=== PATIENT | male | born 1945 | race Two or more races ===

== ENCOUNTER 2020-07-31 17:57 | Inpatient (IN) | payer MEDICARE, MEDICAID ==
[~2020-07-31] VITALS: Ht 170.2 cm; Wt 61.6 kg
[2020-07-31] MEDS ORDERED: HALOPERIDOL 5 MG TABLET PO PRN (20:00)
[2020-07-31] MEDS ORDERED: ZOLPIDEM TARTRATE 10 MG TABLET PO PRN (20:00)
[2020-07-31 21:17] VITALS: BP 115/84
[2020-08-01 01:35] VITALS: BP 112/74
[2020-08-01 08:31] VITALS: BP 105/68
[2020-08-01 08:47] LABS: EOSINOPHILS % (AUTO) 1.1 % (1.0-6.0); HEMATOCRIT 37.2 % (41-53); HEMOGLOBIN 12.4 g/dL (13.5-17.5); LYMPHOCYTES # (AUTO) 1.9 K/uL (1.0-4.8); LYMPHOCYTES % (AUTO) 36.8 % (22.0-44.0); MEAN CORPUSCULAR HEMOGLOBIN 31.1 pg (26.0-34.0); MEAN CORPUSCULAR HGB CONC 33.5 G/dL (31.0-37.0); MEAN CORPUSCULAR VOLUME 93 fL (80-100); MONOCYTES # (AUTO) 0.4 K/uL (0.1-1.0); MONOCYTES % (AUTO) 7.5 % (2.0-9.0); NEUTROPHILS # (AUTO) 2.9 K/uL (1.8-7.7); NEUTROPHILS % (AUTO) 54.6 % (40.0-70.0); PLATELET COUNT (AUTO) 159 K/uL (150-450); RED BLOOD CELL COUNT(AUTO) 3.99 MIL/uL (4.50-5.90); RED CELL DISTRIBUTION WIDTH 14.1 % (11.5-14.5)
[2020-08-01 09:21] LABS: ALANINE AMINOTRANSFERASE 18 U/L (12-78); ALBUMIN 3.4 g/dL (3.4-5.0); ALKALINE PHOSPHATASE 66 U/L (46-116); ANION GAP 7 mmol/L (8-16); ASPARTATE AMINOTRANSFERASE 15 U/L (15-37); BILIRUBIN,TOTAL 0.5 mg/dL (0.1-1.0); CALCIUM, TOTAL 9.3 mg/dL (8.8-10.5); CARBON DIOXIDE 29 mmol/L (22-29); CHLORIDE 105 mmol/L (98-107); CHOL/HDL RATIO 2.6 (4.2-7.3); CHOLESTEROL 138 mg/dL (131-200); CREATININE 0.68 mg/dL (0.60-1.30); FREE T4 (FREE THYROXINE) 0.95 ng/dL (0.76-1.46); GLOMERULAR FILTR. RATE CALC > 60 mL/min (>60); GLUCOSE,RANDOM 83 mg/dL (70-110); HDL CHOLESTEROL 54 mg/dL (40-60); LDL CHOL (CALC.) 68 mg/dL (0-130); POTASSIUM 4.1 mmol/L (3.5-5.1); SODIUM SERUM 141 mmol/L (136-145); THYROID STIMULATING HORMONE 6.98 uIU/mL (0.36-3.74); TOTAL PROTEIN, SERUM 6.4 g/dL (6.4-8.2); TRIGLYCERIDES 80 mg/dL (15-150); UREA NITROGEN, BLOOD 10 mg/dL (7-18)
[2020-08-01] MEDS: LORazepam 2 MG TABLET PO PRN ×2 (12:34→16:57)
[2020-08-01 16:14] VITALS: BP 128/78
[2020-08-01] MEDS: OLANZapine 5 MG TABLET PO SCH (20:41)
[2020-08-02 05:30] VITALS: BP 109/69
[2020-08-02 08:37] VITALS: BP 136/87
[2020-08-02] MEDS: LORazepam 2 MG TABLET PO PRN ×2 (09:04→16:13)
[2020-08-02] MEDS: OLANZapine 5 MG TABLET PO SCH ×2 (09:04→20:07)
[2020-08-02 16:04] VITALS: BP 125/72
[2020-08-03 00:13] VITALS: BP 125/69
[2020-08-03 08:14] VITALS: BP 125/68
[2020-08-03] MEDS: OLANZapine 5 MG TABLET PO SCH ×2 (08:16→20:13)
[2020-08-03 16:15] VITALS: BP 136/73
[2020-08-04 01:50] VITALS: BP 145/91
[2020-08-04 08:08] VITALS: BP 135/88
[2020-08-04] MEDS: OLANZapine 5 MG TABLET PO SCH ×2 (08:24→20:28)
[2020-08-04 16:14] VITALS: BP 145/76
[2020-08-04] MEDS: LORazepam 0.5 MG TABLET PO SCH (16:43)
[2020-08-05 01:08] VITALS: BP 148/89
[2020-08-05] MEDS: OLANZapine 5 MG TABLET PO SCH ×2 (08:29→20:33)
[2020-08-05] MEDS: LORazepam 0.5 MG TABLET PO SCH ×2 (08:29→16:05)
[2020-08-05 09:39] VITALS: BP 137/77
[2020-08-05] MEDS ORDERED: DENTURE ADHESIVE 68 GM CREAM DT PRN (10:30)
[2020-08-06 06:22] VITALS: BP 138/82
[2020-08-06] MEDS: LORazepam 0.5 MG TABLET PO SCH ×2 (08:07→16:22)
[2020-08-06] MEDS: OLANZapine 5 MG TABLET PO SCH ×2 (08:07→20:19)
[2020-08-06 10:01] VITALS: BP 139/90
[2020-08-06 16:15] VITALS: BP 145/85
[2020-08-07 00:26] VITALS: BP 156/89
[2020-08-07] MEDS: OLANZapine 5 MG TABLET PO SCH ×2 (08:26→20:17)
[2020-08-07] MEDS: LORazepam 0.5 MG TABLET PO SCH ×2 (08:26→16:10)
[2020-08-07 08:30] VITALS: BP 139/91
[2020-08-07 16:12] VITALS: BP 138/76
[2020-08-08 05:26] VITALS: BP 143/73
[2020-08-08] MEDS: OLANZapine 5 MG TABLET PO SCH ×2 (08:11→20:39)
[2020-08-08] MEDS: LORazepam 0.5 MG TABLET PO SCH ×2 (08:12→16:11)
[2020-08-08 08:56] VITALS: BP 110/69
[2020-08-08 16:06] VITALS: BP 147/76
[2020-08-09 06:13] VITALS: BP 151/87
[2020-08-09 08:09] VITALS: BP 150/90
[2020-08-09] MEDS: OLANZapine 5 MG TABLET PO SCH (08:37)
[2020-08-09] MEDS: LORazepam 0.5 MG TABLET PO SCH ×2 (08:37→16:10)
[2020-08-09 16:10] VITALS: BP 135/76
[2020-08-09] MEDS: OLANZapine 7.5 MG TABLET PO SCH (20:05)
[2020-08-10 01:15] VITALS: BP 140/75
[2020-08-10 08:04] VITALS: BP 122/71
[2020-08-10] MEDS: LORazepam 0.5 MG TABLET PO SCH ×2 (08:48→16:04)
[2020-08-10] MEDS: NITROFURANTOIN/NITROFURAN MAC 100 MG CAPSULE [MACROBID] PO SCH ×2 (09:00→16:04)
[2020-08-10 09:11] LABS: ALANINE AMINOTRANSFERASE 20 U/L (12-78); ALBUMIN 3.5 g/dL (3.4-5.0); ALKALINE PHOSPHATASE 68 U/L (46-116); ANION GAP 4 mmol/L (8-16); ASPARTATE AMINOTRANSFERASE 16 U/L (15-37); BILIRUBIN,TOTAL 0.5 mg/dL (0.1-1.0); CARBON DIOXIDE 29 mmol/L (22-29); CHLORIDE 111 mmol/L (98-107); CREATINE KINASE, TOTAL ONLY 121 U/L (39-308); CREATININE 0.66 mg/dL (0.60-1.30); GLUCOSE,RANDOM 84 mg/dL (70-110); POTASSIUM 4.6 mmol/L (3.5-5.1); SODIUM SERUM 144 mmol/L (136-145); TOTAL PROTEIN, SERUM 6.3 g/dL (6.4-8.2); UREA NITROGEN, BLOOD 13 mg/dL (7-18)
[2020-08-10 09:13] LABS: APPEARANCE,URINE CLEAR (CLEAR); BILIRUBIN,URINE NEGATIVE (NEGATIVE); GLUCOSE, URINE (UA) NEGATIVE (NEGATIVE); KETONES,URINE NEGATIVE (NEGATIVE); LEUKOCYTE ESTERASE ,URINE TRACE (NEGATIVE); NITRATE,URINE NEGATIVE (NEGATIVE); OCCULT BLOOD,URINE NEGATIVE (NEGATIVE); PROTEIN,URINE NEGATIVE (NEGATIVE)
[2020-08-10 09:22] LABS: BACTERIA,URINE None Seen /HPF (None Seen); RBC,URINE None Seen /HPF (0-2); WBC,URINE 0-2 /HPF (0-5)
[2020-08-10 09:31] LABS: GLOMERULAR FILTR. RATE CALC > 60 mL/min (>60)
[2020-08-10 16:03] VITALS: BP 144/73
[2020-08-10] MEDS: OLANZapine 7.5 MG TABLET PO SCH (20:27)
[2020-08-11 00:16] VITALS: BP 157/81
[2020-08-11 08:07] VITALS: BP 108/86
[2020-08-11] MEDS: LORazepam 0.5 MG TABLET PO SCH ×2 (08:25→16:15)
[2020-08-11] MEDS: MULTIVITAMINS WITH MINERALS, THERAPEUTIC TABLET PO SCH (08:32)
[2020-08-11] MEDS: NITROFURANTOIN/NITROFURAN MAC 100 MG CAPSULE [MACROBID] PO SCH ×2 (08:32→16:15)
[2020-08-11 16:21] VITALS: BP 145/83
[2020-08-11] MEDS: OLANZapine 5 MG RAPDIS TABLET PO SCH (20:11)
[2020-08-12 06:06] VITALS: BP 122/74
[2020-08-12] MEDS: NITROFURANTOIN/NITROFURAN MAC 100 MG CAPSULE [MACROBID] PO SCH ×2 (08:32→16:46)
[2020-08-12] MEDS: MULTIVITAMINS WITH MINERALS, THERAPEUTIC TABLET PO SCH (08:32)
[2020-08-12] MEDS: LORazepam 0.5 MG TABLET PO SCH ×2 (08:34→16:46)
[2020-08-12] MEDS: OLANZapine 5 MG RAPDIS TABLET PO SCH ×2 (08:34→20:58)
[2020-08-12 08:52] VITALS: BP 139/74
[2020-08-12 15:50] VITALS: BP 152/83
[2020-08-12 16:20] VITALS: BP 152/83
[2020-08-13 05:28] VITALS: BP 123/65
[2020-08-13 08:37] VITALS: BP 137/92
[2020-08-13] MEDS: NITROFURANTOIN/NITROFURAN MAC 100 MG CAPSULE [MACROBID] PO SCH ×2 (08:47→16:06)
[2020-08-13] MEDS: LORazepam 0.5 MG TABLET PO SCH ×2 (08:47→16:06)
[2020-08-13] MEDS: MULTIVITAMINS WITH MINERALS, THERAPEUTIC TABLET PO SCH (08:47)
[2020-08-13] MEDS: OLANZapine 5 MG RAPDIS TABLET PO SCH ×2 (08:47→20:23)
[2020-08-13 16:07] VITALS: BP 130/75
[2020-08-14 05:34] VITALS: BP 123/65
[2020-08-14] MEDS: OLANZapine 5 MG RAPDIS TABLET PO SCH ×2 (08:34→20:10)
[2020-08-14] MEDS: NITROFURANTOIN/NITROFURAN MAC 100 MG CAPSULE [MACROBID] PO SCH ×2 (08:34→16:30)
[2020-08-14] MEDS: MULTIVITAMINS WITH MINERALS, THERAPEUTIC TABLET PO SCH (08:34)
[2020-08-14] MEDS: LORazepam 0.5 MG TABLET PO SCH ×2 (08:34→16:30)
[2020-08-14 10:41] VITALS: BP 119/89
[2020-08-14 16:11] VITALS: BP 135/70
[2020-08-15 06:23] VITALS: BP 108/60
[2020-08-15 08:28] VITALS: BP 139/74
[2020-08-15] MEDS: MULTIVITAMINS WITH MINERALS, THERAPEUTIC TABLET PO SCH (09:36)
[2020-08-15] MEDS: LORazepam 0.5 MG TABLET PO SCH ×2 (09:36→15:45)
[2020-08-15] MEDS: OLANZapine 5 MG RAPDIS TABLET PO SCH (09:38)
[2020-08-15] MEDS ORDERED: INFLUENZA VIRUS VACCINE QVS 2020-21 (6MO+)/PF 60 MCG/0.5 ML SYRINGE IM ONE (12:30)
[2020-08-15] MEDS ORDERED: OLAN5TAB40 PO ×3 (15:48→15:53)
[2020-08-15] MEDS ORDERED: LORA-999 PO (15:53)
[2020-08-15 16:49] VITALS: BP 147/88
== END 2020-08-15 17:30 | disposition home or self-care (01) | DRG 885 ==
LOC: B2S 19:57
PROVIDERS: ADMIT Psychiatry & Neurology Psychiatry; ATTEND Psychiatry & Neurology Psychiatry
DX: F20.0 Paranoid schizophrenia (principal); N39.0 Urinary tract infection, site not specified; E03.9 Hypothyroidism, unspecified; D64.9 Anemia, unspecified; R13.11 Dysphagia, oral phase; K59.00 Constipation, unspecified; E78.5 Hyperlipidemia, unspecified; Z72.0 Tobacco use; Z28.21 Immunization not carried out because of patient refusal
CPT/HCPCS: 83735; 84436; 84439; 84443; 90686